=== PATIENT | female | born 1995 | race Caucasian/White ===

== ENCOUNTER 2018-05-03 07:59 | Emergency (ER) | payer OTHER ==
[2018-05-03 08:06] VITALS: BP 117/81; PULSE 112; RESP 20; TEMP 98.5
[2018-05-03] MEDS ORDERED: ORPHENADRINE 30 MG/ML 2 ML VIAL IM STA (08:36)
[2018-05-03] MEDS ORDERED: KETOROLAC 60 MG/2 ML VIAL IM STA (08:36)
--- NOTE | 2018-05-03 08:38 | ED ---
Neck Injury/Pain HPI - General Chief Complaint: Neck Pain/Injury Stated Complaint: Neck Pain Time Seen by Provider: 05/03/18 08:24 Source: RN notes reviewed, old records reviewed Mode of arrival: ambulatory Limitations: no limitations - History of Present Illness Initial Comments: 23-year-old female presents with right-sided neck pain. She reports she woke up today and sat up and started have severe pain in the right side of her neck. She states it's worse with movement. Reports the pain shoots in her shoulder. She denies any falls or trauma or injury. Patient states that she's never had this before. She did take a Flexeril prior to arrival.Patient denies any recent fever, chills, shortness of breath, chest pain, back pain, abdominal pain, nausea vomiting, numbness or tingling, dysuria or hematuria, constipation or diarrhea, headaches or visual changes, or any other current symptoms - Related Data Previous Rx's Medication Instructions Recorded Dexamethasone 0.75 mg PO DAILY #12 tab 05/03/18 Diazepam [Valium] 5 mg PO Q8HR PRN 3 Days #9 tab 05/03/18 Ibuprofen 800 mg PO TID #20 tablet 05/03/18 Allergies Allergy/AdvReac Type Severity Reaction Status Date / Time No Known Allergies Allergy Verified 05/03/18 08:06 Review of Systems ROS Statement: Those systems with pertinent positive or pertinent negative responses have been documented in the HPI. ROS Other: All systems not noted in ROS Statement are negative. Past Medical History Past Medical History: No Reported History, Asthma History of Any Multi-Drug Resistant Organisms: None Reported Past Surgical History: Adenoidectomy, Tonsillectomy Additional Past Surgical History / Comment(s): breast cyst removed Past Psychological History: No Psychological Hx Reported Smoking Status: Never smoker Past Alcohol Use History: Rare Past Drug Use History: None Reported General Exam - General Exam Comments Initial Comments: 23-year-old female. Alert and oriented. No acute distress Limitations: no limitations General appearance: alert, in no apparent distress Head exam: Present: atraumatic, normocephalic, normal inspection Eye exam: Present: normal appearance, PERRL, EOMI. Absent: scleral icterus, conjunctival injection, periorbital swelling ENT exam: Present: normal exam, mucous membranes moist Neck exam: Present: normal inspection, tenderness (Over right SCM.). Absent: meningismus, full ROM (Patient will not turn had a left and right due to pain), lymphadenopathy Respiratory exam: Present: normal lung sounds bilaterally. Absent: respiratory distress, wheezes, rales, rhonchi, stridor Cardiovascular Exam: Present: regular rate, normal rhythm, normal heart sounds. Absent: systolic murmur, diastolic murmur, rubs, gallop, clicks GI/Abdominal exam: Present: soft, normal bowel sounds. Absent: distended, tenderness, guarding, rebound, rigid Extremities exam: Present: normal inspection, full ROM, normal capillary refill. Absent: tenderness, pedal edema, joint swelling, calf tenderness Back exam: Present: normal inspection Neurological exam: Present: alert, oriented X3, CN II-XII intact Psychiatric exam: Present: normal affect Skin exam: Present: warm, dry, intact, normal color. Absent: rash Course Vital Signs 05/03/18 08:02 Temperature 98.5 F Pulse Rate 112 H Respiratory 20 Rate Blood Pressure 117/81 O2 Sat by Pulse 100 Oximetry Medical Decision Making - Medical Decision Making 23-year-old female presents emergency Department chief complaint of right-sided neck pain. She reports that she woke up today and is unable to turn her head from [id number]. Patient states she's had no trauma. Patient has some tenderness over the right SCM. Reports pain goes into the shoulder. She is given IM Toradol and Norflex. X-ray shows evidence of a rightward tilting of the neck due to muscle spasm or position. No evidence of malalignment or soft tissue swelling. Patient be discharged at this time with muscle relaxers and short course of pain medicine. Discussed follow-up with PCP L questions answered return parameters were discussed. - Radiology Data Radiology results: report reviewed Patient's rightward head turned be positional or due to muscle spasm. No malalignment. no Vertebral soft tissue swelling. Disposition Clinical Impression: Right torticollis Disposition: HOME SELF-CARE Condition: Good Instructions: Cervical Strain (ED) Additional Instructions: Patient advised to follow-up with primary care provider. Take medication as prescribed. Do warm compresses over the area. Return to emergency department if any alarming signs or symptoms occur. Prescriptions: Dexamethasone 0.75 mg PO DAILY #12 tab Diazepam [Valium] 5 mg PO Q8HR PRN 3 Days #9 tab PRN Reason: Pain Ibuprofen 800 mg PO TID #20 tablet Is patient prescribed a controlled substance at d/c from ED?: Yes When asked, does pt state using other controlled substances?: No If prescribed controlled substance>3 days was MAPS reviewed?: Prescribed <3 Days If opioid is for acute pain is fill amount 7 days or less?: Yes If Rx opioid, was Start Talking consent form obtained?: No Referrals: None,Stated [Primary Care Provider] - 1-2 days Elizabeth Byrd MD [STAFF PHYSICIAN] - 1-2 days Time of Disposition: 09:40
--- NOTE | 2018-05-03 09:24 | XR ---
EXAMINATION TYPE: XR cervical spine limited DATE OF EXAM: 05/03/2018 COMPARISON: NONE HISTORY: 23 year-old female right-sided neck pain TECHNIQUE: 4 views FINDINGS: No predental space widening or prevertebral soft tissue swelling. Alignment is maintained. No acute f racture identified. Normal odontoid view. There is some rightward tilt of the patient's neck. IMPRESSION: Rightward tilt of the patient's neck could be positional or due to muscle spasm. No malalignment or p revertebral soft tissue swelling.
== END 2018-05-03 09:52 | disposition home or self-care (01) ==
LOC: EC 07:59
DX: M43.6 Torticollis (principal)
CPT/HCPCS: 72040; 99284; 96372 ×2; J2360; J1885

== ENCOUNTER 2021-06-12 07:41 | Emergency (ER) | payer BC, OTHER ==
[2021-06-12 07:46] VITALS: BP 107/72; PULSE 113; RESP 18; TEMP 98.6
[2021-06-12] MEDS ORDERED: ACETAMINOPHEN TAB 500 MG TAB PO STA (08:20)
--- NOTE | 2021-06-12 08:21 | ED ---
Extremity Problem HPI - General Chief complaint: Extremity Problem,Nontraumatic Stated complaint: leg pain Time Seen by Provider: 06/12/21 07:58 Source: patient, RN notes reviewed Mode of arrival: wheelchair Limitations: no limitations - History of Present Illness Initial comments: This a 26-year-old female presents emergency from chief complaint of left leg pain, back pain. Patient has a history of sciatica states it feels very similar. She woke up with yesterday. She is not taking any medications for her. She does admit that she is currently denies any vaginal bleeding or vaginal discharge. She states she has a burning sensation, numbness in her left leg denies any bowel, bladder incontinence or retentionor saddle anesthesias. - Related Data Previous Rx's Medication Instructions Recorded Ibuprofen 800 mg PO TID #20 tablet 05/03/18 dexAMETHasone [Dexamethasone] 0.75 mg PO DAILY #12 tab 05/03/18 diazePAM [Valium] 5 mg PO Q8HR PRN 3 Days #9 tab 05/03/18 Allergies Allergy/AdvReac Type Severity Reaction Status Date / Time No Known Allergies Allergy Verified 06/12/21 07:45 Review of Systems ROS Statement: Those systems with pertinent positive or pertinent negative responses have been documented in the HPI. ROS Other: All systems not noted in ROS Statement are negative. Past Medical History Past Medical History: No Reported History, Asthma History of Any Multi-Drug Resistant Organisms: None Reported Past Surgical History: Adenoidectomy, Tonsillectomy Additional Past Surgical History / Comment(s): breast cyst removed Past Psychological History: No Psychological Hx Reported Smoking Status: Never smoker Past Alcohol Use History: Rare Past Drug Use History: None Reported General Exam Limitations: no limitations General appearance: alert, in no apparent distress Head exam: Present: atraumatic, normocephalic, normal inspection Neck exam: Present: normal inspection, full ROM. Absent: tenderness, meningismus, lymphadenopathy Respiratory exam: Present: normal lung sounds bilaterally. Absent: respiratory distress, wheezes, rales, rhonchi, stridor Cardiovascular Exam: Present: regular rate, normal rhythm, normal heart sounds. Absent: systolic murmur, diastolic murmur, rubs, gallop, clicks GI/Abdominal exam: Present: soft, normal bowel sounds. Absent: distended, tenderness, guarding, rebound, rigid Extremities exam: Present: other (Lower extremity neurovascular intact, pain with left straight leg raise) Back exam: Present: full ROM (Pain With range of motion), tenderness, paraspinal tenderness. Absent: vertebral tenderness Neurological exam: Present: reflexes normal. Absent: motor sensory deficit Course Vital Signs 06/12/21 07:43 Temperature 98.6 F Pulse Rate 113 H Respiratory 18 Rate Blood Pressure 107/72 O2 Sat by Pulse 100 Oximetry Medical Decision Making - Medical Decision Making Patient has left leg lumbar radiculopathy. She'll be given Tylenol she is currently . She has no red flag symptoms return parameters were discussed. Disposition Clinical Impression: Lumbar radiculopathy, acute Disposition: HOME SELF-CARE Condition: Stable Instructions (If sedation given, give patient instructions): Lumbar Radiculopathy (ED) Additional Instructions: Please return to the Emergency Department if symptoms worsen or any other concerns. Is patient prescribed a controlled substance at d/c from ED?: No Referrals: None,Stated [Primary Care Provider] - 1-2 days Time of Disposition:
== END 2021-06-12 08:28 | disposition home or self-care (01) ==
LOC: EC 07:41
DX: M54.16 Radiculopathy, lumbar region (principal); J45.909 Unspecified asthma, uncomplicated; Z79.1 Long term (current) use of non-steroidal anti-inflammatories (NSAID); Z79.899 Other long term (current) drug therapy
CPT/HCPCS: 99283

== ENCOUNTER 2021-06-13 19:13 | Inpatient (IN) | payer BC, OTHER ==
[2021-06-13] MEDS ORDERED: ACETAMINOPHEN TAB 325 MG TAB PO STA (21:42)
[2021-06-13 22:09] LABS: Appearance,Urine Cloudy (Clear); Bacteria,Urine Many /hpf; Bilirubin,Urine Negative (Negative); Blood,Urine Negative (Negative); Color,Urine Yellow; Glucose,Urine (UA) Negative (Negative); Ketones,Urine 4+ (Negative); Leukocyte Esterase,Urine Small (Negative); Mucus,Urine Few /hpf; Nitrite,Urine Negative (Negative); PH, Urine 5.5 (5.0-8.0); Protein,Urine Trace (Negative); RBC,Urine 2 /hpf (0-5); Specific Gravity,Urine 1.023 (1.001-1.035); Squamous Epithelial Cell,Urine 3 /hpf (0-4); Urobilinogen,Urine <2.0 mg/dL (<2.0); WBC,Urine 11 /hpf (0-5)
[2021-06-13 22:15] LABS: Basophils % (A) 0 %; Eosinophils # (A) 0.1 k/uL (0-0.7); Eosinophils % (A) 1 %; HCT 38.5 % (34.0-46.0); HGB 13.4 gm/dL (11.4-16.0); Lymphocytes # (A) 1.2 k/uL (1.0-4.8); Lymphocytes % (A) 9 %; MCHC 34.9 g/dL (31.0-37.0); MCV 88.8 fL (80.0-100.0); Mean Platelet Volume 7.8; Monocytes # (A) 0.5 k/uL (0-1.0); Monocytes % (A) 4 %; Neutrophils # (A) 11.7 k/uL (1.3-7.7); Neutrophils % (A) 85 %; Platelet Count 199 k/uL (150-450); RBC 4.33 m/uL (3.80-5.40); RDW 11.9 % (11.5-15.5); WBC 13.7 k/uL (3.8-10.6)
[2021-06-13 22:22] LABS: ALT 11 U/L (4-34); AST 26 U/L (14-36); African American GFR (CKD) >90 (>60 ml/min/1.73 sqM); Albumin 4.3 g/dL (3.5-5.0); Alkaline Phosphatase 61 U/L (38-126); Anion Gap 12 mmol/L; Blood Urea Nitrogen 9 mg/dL (7-17); Calcium 9.2 mg/dL (8.4-10.2); Carbon Dioxide 19 mmol/L (22-30); Chloride 101 mmol/L (98-107); Glucose 91 mg/dL (74-99); Non-African American GFR(CKD) >90 (>60 ml/min/1.73 sqM); Potassium 4.2 mmol/L (3.5-5.1); Sodium 132 mmol/L (137-145); Total Bilirubin 0.5 mg/dL (0.2-1.3); Total Protein 7.4 g/dL (6.3-8.2)
[2021-06-13] MEDS ORDERED: SODIUM CHLORIDE 0.9% 1,000 ML IV STA (22:51)
--- NOTE | 2021-06-13 22:52 | US ---
EXAMINATION TYPE: US venous doppler duplex LE LT DATE OF EXAM: 06/13/2021 10:40 PM COMPARISON: NONE CLINICAL HISTORY: r/o dvt. R/O DVT. Pain and swelling x 3 days. No hx of DVT. Patient does not take b lood thinners. Patient is 8 weeks *. SIDE PERFORMED: Left TECHNIQUE: The lower extremity deep venous system is examined utilizing real time linear array sonog devonte with graded compression, doppler sonography and color-flow sonography. VESSELS IMAGED: Common Femoral Vein Deep Femoral Vein Greater Saphenous Vein * Femoral Vein Popliteal Vein Small Saphenous Vein * Proximal Calf Veins (* superficial vessels) Left Leg: Extensive internal echoes seen from prox calf veins up through CFV/GSV. Little to no color flow is seen within veins imaged. Compressions were not performed due to internal echoes seen. IMPRESSION: There is extensive acute deep vein thrombosis in the left leg. There is involvement of the femoral an d popliteal veins in the calf veins.
[2021-06-13] MEDS ORDERED: HEPARIN SODIUM 1,000 UN/ML (10ML VL) IV PRN (23:15)
[2021-06-13] MEDS ORDERED: HEPARIN SODIUM 1,000 UN/ML (10ML VL) IV ONE (23:15)
[2021-06-13] MEDS ORDERED: HEPARIN SOD,PORK IN 0.45% NACL 25,000 UNIT in 0.45% NACL 1 250ML.BAG IV SCH (23:15)
[2021-06-13] MEDS ORDERED: NALOXONE 0.4 MG/ML 1 ML VIAL IV PRN (23:24)
--- NOTE | 2021-06-13 23:24 | ED ---
Extremity Problem HPI - General Chief complaint: Extremity Problem,Nontraumatic Stated complaint: 8wks preg/left leg pain/revisit Time Seen by Provider: 06/13/21 21:18 Source: patient Mode of arrival: wheelchair Limitations: no limitations - History of Present Illness Initial comments: 26-year-old female, , 8 week , presenting to emergency Department with a chief complaint of back and leg pain. Patient reports she has sciatica type pain that is common with her last . Patient reports her pain started about 3 days ago, gradual onset without any injuries. States it is located in the lower lumbar region with radiation along posterior aspect of the left lower extremity. States she was evaluated yesterday and her symptoms imp roved after analgesia. However, states the symptoms have returned. She is also noticed swelling in the left lower extremity as well. Denies any associated chest pain or shortness of breath. She does not have any urinary or vaginal symptoms. No vaginal bleeding or abdominal cramping. - Related Data Home Medications Medication Instructions Recorded Confirmed Acetaminophen [Tylenol Extra 1,000 mg PO Q6H PRN 06/13/21 06/13/21 Strength] Allergies Allergy/AdvReac Type Severity Reaction Status Date / Time No Known Allergies Allergy Verified 06/13/21 22:38 Review of Systems ROS Statement: Those systems with pertinent positive or pertinent negative responses have been documented in the HPI. ROS Other: All systems not noted in ROS Statement are negative. Past Medical History Past Medical History: No Reported History, Asthma History of Any Multi-Drug Resistant Organisms: None Reported Past Surgical History: Adenoidectomy, Tonsillectomy Additional Past Surgical History / Comment(s): breast cyst removed Past Psychological History: No Psychological Hx Reported Smoking Status: Never smoker Past Alcohol Use History: Rare Past Drug Use History: None Reported General Exam Limitations: no limitations General appearance: alert, in no apparent distress Head exam: Present: atraumatic, normocephalic, normal inspection Eye exam: Present: normal appearance, PERRL, EOMI Pupils: Present: normal accommodation ENT exam: Present: normal exam, normal oropharynx, mucous membranes moist Neck exam: Present: normal inspection, full ROM. Absent: tenderness, lymphadenopathy Respiratory exam: Present: normal lung sounds bilaterally. Absent: respiratory distress Cardiovascular Exam: Present: regular rate, normal rhythm, normal heart sounds. Absent: systolic murmur Extremities exam: Present: normal inspection, full ROM, tenderness, normal capillary refill, calf tenderness (Left calf tenderness), other (Palpable DP and PT bilaterally) Back exam: Present: normal inspection, full ROM. Absent: tenderness Neurological exam: Present: alert, oriented X3 Psychiatric exam: Present: normal affect, normal mood Skin exam: Present: warm, dry, intact, normal color Course Vital Signs 06/13/21 19:51 Temperature 99.3 F Pulse Rate 106 H Respiratory 20 Rate Blood Pressure 106/68 O2 Sat by Pulse 97 Oximetry Medical Decision Making - Medical Decision Making 26-year-old female presents emergency Department with a chief complaint of back and leg pain. Physical examination, positive Homans sign. Ultrasound revealed an extensive acute DVT in the left leg. There is a vomit of the femoral and popliteal veins. Laboratory work shows no other acute findings. She does not have any urinary or vaginal symptoms. No vaginal bleeding or abdominal crampi ng. Patient will be started on low intensity heparin per recommendation from inpatient pharmacy. Plus for ketones and urine. She will be given IV fluids. Case discussed with I spoke with VERITO Lovell. who will admit for Dr. Duran OB on consult. - Lab Data Result diagrams: 06/13/21 21:58 06/13/21 21:58 Lab Results 06/13/21 06/13/21 06/13/21 Range/Units 21:54 21:58 21:58 WBC 13.7 H (3.8-10.6) k/uL RBC 4.33 (3.80-5.40) m/uL Hgb 13.4 (11.4-16.0) gm/dL Hct 38.5 (34.0-46.0) % MCV 88.8 (80.0-100.0) fL MCH 31.0 (25.0-35.0) pg MCHC 34.9 (31.0-37.0) g/dL RDW 11.9 (11.5-15.5) % Plt Count 199 (150-450) k/uL MPV 7.8 Neutrophils % 85 % Lymphocytes % 9 % Monocytes % 4 % Eosinophils % 1 % Basophils % 0 % Neutrophils # 11.7 H (1.3-7.7) k/uL Lymphocytes # 1.2 (1.0-4.8) k/uL Monocytes # 0.5 (0-1.0) k/uL Eosinophils # 0.1 (0-0.7) k/uL Basophils # 0.0 (0-0.2) k/uL Sodium 132 L (137-145) mmol/L Potassium 4.2 (3.5-5.1) mmol/L Chloride 101 (98-107) mmol/L Carbon Dioxide 19 L (22-30) mmol/L Anion Gap 12 mmol/L BUN 9 (7-17) mg/dL Creatinine 0.46 L (0.52-1.04) mg/dL Est GFR (CKD-EPI)AfAm >90 (>60 ml/min/1.73 sqM) Est GFR (CKD-EPI)NonAf >90 (>60 ml/min/1.73 sqM) Glucose 91 (74-99) mg/dL Calcium 9.2 (8.4-10.2) mg/dL Total Bilirubin 0.5 (0.2-1.3) mg/dL AST 26 (14-36) U/L ALT 11 (4-34) U/L Alkaline Phosphatase 61 (38-126) U/L Total Protein 7.4 (6.3-8.2) g/dL Albumin 4.3 (3.5-5.0) g/dL Urine Color Yellow Urine Appearance Cloudy H (Clear) Urine pH 5.5 (5.0-8.0) Ur Specific Howard 1.023 (1.001-1.035) Urine Protein Trace H (Negative) Urine Glucose (UA) Negative (Negative) Urine Ketones 4+ H (Negative) Urine Blood Negative (Negative) Urine Nitrite Negative (Negative) Urine Bilirubin Negative (Negative) Urine Urobilinogen <2.0 (<2.0) mg/dL Ur Leukocyte Esterase Small H (Negative) Urine RBC 2 (0-5) /hpf Urine WBC 11 H (0-5) /hpf Ur Squamous Epith Cells 3 (0-4) /hpf Urine Bacteria Many H (None) /hpf Urine Mucus Few H (None) /hpf Disposition Clinical Impression: Deep vein thrombosis (DVT) of lower extremity Disposition: ADMITTED IP TO THIS HOSP Condition: Stable Is patient prescribed a controlled substance at d/c from ED?: No Referrals: None,Stated [Primary Care Provider] - 1-2 days Time of Disposition: 23:23
[2021-06-13 23:57] LABS: Basophils # (A) 0.1 k/uL (0-0.2); Basophils % (A) 0 %; Eosinophils # (A) 0.1 k/uL (0-0.7); Eosinophils % (A) 1 %; HCT 36.9 % (34.0-46.0); HGB 12.9 gm/dL (11.4-16.0); Lymphocytes # (A) 0.9 k/uL (1.0-4.8); Lymphocytes % (A) 7 %; MCH 31.4 pg (25.0-35.0); MCHC 34.8 g/dL (31.0-37.0); MCV 90.2 fL (80.0-100.0); Mean Platelet Volume 7.5; Monocytes # (A) 0.5 k/uL (0-1.0); Monocytes % (A) 4 %; Neutrophils # (A) 12.1 k/uL (1.3-7.7); Neutrophils % (A) 88 %; Platelet Count 199 k/uL (150-450); RBC 4.09 m/uL (3.80-5.40); RDW 12.3 % (11.5-15.5); WBC 13.8 k/uL (3.8-10.6)
[2021-06-14 00:02] LABS: INR 0.9 (<1.2); Partial Thromboplastin Time 24.8 sec (22.0-30.0); Prothrombin Time 10.1 sec (9.0-12.0)
[2021-06-14] MEDS: ACETAMINOPHEN TAB 325 MG TAB PO PRN ×2 (04:44→11:17)
[2021-06-14 07:00] LABS: Prothrombin Time 10.4 sec (9.0-12.0)
[2021-06-14 07:19] LABS: Basophils % (A) 0 %; Eosinophils # (A) 0.1 k/uL (0-0.7); Eosinophils % (A) 1 %; HCT 35.3 % (34.0-46.0); HGB 11.7 gm/dL (11.4-16.0); Lymphocytes # (A) 1.5 k/uL (1.0-4.8); Lymphocytes % (A) 13 %; MCH 29.9 pg (25.0-35.0); MCHC 33.1 g/dL (31.0-37.0); MCV 90.3 fL (80.0-100.0); Mean Platelet Volume 8.2; Monocytes # (A) 0.5 k/uL (0-1.0); Monocytes % (A) 4 %; Neutrophils # (A) 8.8 k/uL (1.3-7.7); Neutrophils % (A) 80 %; Platelet Count 195 k/uL (150-450); RDW 11.9 % (11.5-15.5)
[2021-06-14] MEDS ORDERED: diphenhydrAMINE 25 MG CAP PO STA (07:39)
[2021-06-14] MEDS ORDERED: ONDANSETRON 4 MG/2 ML VIAL IVP PRN (08:45)
--- NOTE | 2021-06-14 13:00 | P.OBCN ---
History of Present Illness Consult date: 06/14/21 Reason for consult: other (, DVT) Chief complaint: 8 weeks , DVT History of present illness: This is a 26-year-old that presented to the hospital with complaints of lower extremity swelling. Patient was diagnosed with deep vein thrombosis and admitted to the hospital for IV therapy with heparin. Patient states she did have an ultrasound at a care center [facility] which gave her for due date. She has not had a formal dating ultrasound. Patient states she has not established care with a [employer] yet. Patient states she has some nausea for which she is taking Zofran, she denies vaginal bleeding or spotting. Patient states she had an uncomplicated first 7 years ago she did struggle with nausea and vomiting of until about 8 weeks, otherwise she had a spontaneous vaginal delivery. Review of Systems Constitutional: Denies chills, Denies fatigue, Denies fever Cardiovascular: Denies leg edema Respiratory: Denies dyspnea Gastrointestinal: Reports nausea, Reports vomiting Genitourinary: Reports Past Medical History Past Medical History: No Reported History, Asthma History of Any Multi-Drug Resistant Organisms: None Reported Past Surgical History: Adenoidectomy, Tonsillectomy Additional Past Surgical History / Comment(s): breast cyst removed Past Psychological History: No Psychological Hx Reported Smoking Status: Never smoker Past Alcohol Use History: Rare Past Drug Use History: None Reported Medications and Allergies Home Medications Medication Instructions Recorded Confirmed Type Acetaminophen [Tylenol Extra 1,000 mg PO Q6H PRN 06/13/21 06/13/21 History Strength] Allergies Allergy/AdvReac Type Severity Reaction Status Date / Time No Known Allergies Allergy Verified 06/13/21 22:38 Exam Osteopathic Statement: *. No significant issues noted on an osteopathic structural exam other than those noted in the History and Physical/Consult. Vital Signs Temp Pulse Pulse Resp BP BP Pulse Ox 06/14/21 07:42 98.3 F 95 16 100/66 97 06/14/21 01:24 99 F 87 18 100/68 98 06/13/21 19:51 99.3 F 106 H 20 106/68 97 Intake and Output 06/13/21 06/14/21 06/14/21 22:59 06:59 14:59 Other: Weight 68.039 kg 68.039 kg Targeted physical exam is performed. Patient is noted to be a well-nourished well-developed female in no acute distress, breathing is noted to be nonlabored, heart has regular rate and rhythm, abdomen is soft. Pelvic exam is deferred. Results Result Diagrams: 06/14/21 05:57 06/13/21 21:58 Abnormal Lab Results - Last 24 Hours (Table) 06/13/21 06/13/21 06/13/21 Range/Units 21:54 21:58 21:58 WBC 13.7 H (3.8-10.6) k/uL Neutrophils # 11.7 H (1.3-7.7) k/uL Lymphocytes # (1.0-4.8) k/uL APTT (22.0-30.0) sec Sodium 132 L (137-145) mmol/L Carbon Dioxide 19 L (22-30) mmol/L Creatinine 0.46 L (0.52-1.04) mg/dL Urine Appearance Cloudy H (Clear) Urine Protein Trace H (Negative) Urine Ketones 4+ H (Negative) Ur Leukocyte Esterase Small H (Negative) Urine WBC 11 H (0-5) /hpf Urine Bacteria Many H (None) /hpf Urine Mucus Few H (None) /hpf 06/13/21 06/14/21 06/14/21 Range/Units 23:31 05:57 05:57 WBC 13.8 H 11.0 H (3.8-10.6) k/uL Neutrophils # 12.1 H 8.8 H (1.3-7.7) k/uL Lymphocytes # 0.9 L (1.0-4.8) k/uL APTT 51.1 H (22.0-30.0) sec Sodium (137-145) mmol/L Carbon Dioxide (22-30) mmol/L Creatinine (0.52-1.04) mg/dL Urine Appearance (Clear) Urine Protein (Negative) Urine Ketones (Negative) Ur Leukocyte Esterase (Negative) Urine WBC (0-5) /hpf Urine Bacteria (None) /hpf Urine Mucus (None) /hpf Microbiology - Last 24 Hours (Table) 06/13/21 21:54 Urine Culture - Preliminary Urine,Clean Catch Assessment and Plan (1) 8 weeks gestation of Current Visit: Yes Status: Acute Code(s): Z3A.08 - 8 WEEKS GESTATION OF SNOMED Code(s): 43010807 (2) Deep vein thrombosis (DVT) of lower extremity Current Visit: Yes Status: Acute Code(s): I82.409 - ACUTE EMBOLISM AND THOMBOS UNSP DEEP VN UNSP LOWER EXTREMITY SNOMED Code(s): 141962694 Plan: This pleasant 26-year-old at approximately 8 weeks of gestation presented to the hospital yesterday with complaints of lower extremity pain and swelling. Patient was subsequently diagnosed with deep pain thrombosis and started on IV heparin. Medicine is following. In regards to her OB care, will order ultrasound for dating purposes. Otherwise will follow along on the periphery. Patient is currently taking a vitamin in addition to Zofran as needed for her nausea. Patient is encouraged to establish care with [employer] once discharge is done. All questions are answered to patient's satisfaction, should you have any other concerns regarding this patient please feel free to reach out thank you
--- NOTE | 2021-06-14 14:00 | US ---
EXAMINATION TYPE: Transabdominal DATE OF EXAM: 06/14/2021 1:41 PM COMPARISON: NONE CLINICAL HISTORY: , DVT. positive for DVT, no pelvic complaints, EXAM PERFORMED: OBTA EXAM MEASUREMENTS: GESTATIONAL AGE / DATING Physician Established: ( 8 weeks/5 days) EDC: 01/19/2022 Dates by LMP: LMP unknown Dates by First Scan: No previous this is first scan Dates by Current Scan for: ( 9 weeks/3 days) EDC: 01/14/2022 MATERNAL ANATOMY Uterus: 11.7 x 8.7 x 6.8cm Right Ovary: not seen due to bowel gas and enlarging UT Left Ovary: 2.7 x 3.1 x 2.1cm Post CDS / Adnexa: wnl Presence of free fluid: no Presence of corpus luteal cyst: not seen Presence of subchorionic bleed: no GESTATION / SURVEY CRL: 26.3cm (9 weeks/3 days) MSD: wnl Yolk Sac (normal less than 6mm): 0.5cm Heart Rate: 170 bpm Rhythm: Normal IUP: Viable IUP Urinary bladder is sonolucent. IMPRESSION: 1. Single intrauterine gestation estimated at 9 weeks 3 days gestation based on the crown-rump length . Cardiac activity measures 170 bpm.
[2021-06-14] MEDS ORDERED: HYDROcodone/APAP 7.5-325MG 1 EACH TAB PO PRN (16:19)
--- NOTE | 2021-06-14 16:45 | P.HPIM ---
History of Present Illness Patient is a pleasant 26-year-old female came in with comments of left lower extremity swelling found to have DVT in the left lower extremity. Patient is 8 weeks . She is comparing of severe pain in the leg as well as pain in the back. All these pains was started about 3 days ago. She and had history of sciatica during her last . Patient is also bit hyponatremic and did have leukocytosis with white blood cell count of 13,700. REVIEW OF SYSTEMS: CONSTITUTIONAL: No fever, no malaise, no fatigue. HEENT: No recent visual problems or hearing problems. Denied any sore throat. CARDIOVASCULAR: No chest pain, orthopnea, PND, no palpitations, no syncope. PULMONARY: No shortness of breath, no cough, no hemoptysis. GASTROINTESTINAL: No diarrhea, no nausea, no vomiting, no abdominal pain. NEUROLOGICAL: No headaches, no weakness, no numbness. HEMATOLOGICAL: Denies any bleeding or petechiae. GENITOURINARY: Denies any burning micturition, frequency, or urgency. MUSCULOSKELETAL/RHEUMATOLOGICAL: Pain in the left leg swelling in the left leg as well as low back pain ENDOCRINE: Denies any polyuria or polydipsia. The rest of the 14-point review of systems is negative. PHYSICAL EXAMINATION: GENERAL: The patient is alert and oriented x3, not in any acute distress. Well developed, well nourished. HEENT: Pupils are round and equally reacting to light. EOMI. No scleral icterus. No conjunctival pallor. Normocephalic, atraumatic. No pharyngeal erythema. No thyromegaly. CARDIOVASCULAR: S1 and S2 present. No murmurs, rubs, or gallops. PULMONARY: Chest is clear to auscultation, no wheezing or crackles. ABDOMEN: Soft, nontender, nondistended, normoactive bowel sounds. No palpable organomegaly. MUSCULOSKELETAL: No joint swelling or deformity. EXTREMITIES: No cyanosis, clubbin. Edema in the left lower extremity NEUROLOGICAL: Gross neurological examination did not reveal any focal deficits. SKIN: No rashes. Assessment and plan Left lower extremity DVT and this DVT secondary to her status. Patient will be started on Lovenox this can you IV heparin patient will be discharged on Lovenox which she'll need to continue until 6 weeks . Lovenox can be held before planned procedure like section and need to be started 6-12 hours after the procedure depending on the type of procedure. I will hyponatremia hypovolemic hyponatremia patient is receiving IV fluids -Severe pain in the left lower extremity probably post-thrombotic pain we will use compression socks patient pain is not controlled on Tylenol will use [place] for pain -Leukocytosis reactive in nature -8 weeks gestation: Was evaluated by VP PATIENT. -Low back pain, chronic DVT prophylaxis: Patient is on therapeutic anticoagulation with Lovenox Past Medical History Past Medical History: No Reported History, Asthma History of Any Multi-Drug Resistant Organisms: None Reported Past Surgical History: Adenoidectomy, Tonsillectomy Additional Past Surgical History / Comment(s): breast cyst removed Past Psychological History: No Psychological Hx Reported Smoking Status: Never smoker Past Alcohol Use History: Rare Past Drug Use History: None Reported Medications and Allergies Home Medications Medication Instructions Recorded Confirmed Type Acetaminophen [Tylenol Extra 1,000 mg PO Q6H PRN 06/13/21 06/13/21 History Strength] Allergies Allergy/AdvReac Type Severity Reaction Status Date / Time No Known Allergies Allergy Verified 06/13/21 22:38 Physical Exam Vitals: Vital Signs Temp Pulse Pulse Pulse Resp BP BP 06/14/21 14:00 98.6 F 86 17 90/62 06/14/21 07:42 98.3 F 95 16 100/66 06/14/21 01:24 99 F 87 18 100/68 06/13/21 19:51 99.3 F 106 H 20 106/68 Pulse Ox 06/14/21 14:00 98 06/14/21 07:42 97 06/14/21 01:24 98 06/13/21 19:51 97 Intake and Output 06/14/21 06/14/21 06/14/21 06:59 14:59 22:59 Other: Weight 68.039 kg Results CBC & Chem 7: 06/14/21 05:57 06/13/21 21:58 Labs: Abnormal Lab Results - Last 24 Hours (Table) 06/13/21 06/13/21 06/13/21 Range/Units 21:54 21:58 21:58 WBC 13.7 H (3.8-10.6) k/uL Neutrophils # 11.7 H (1.3-7.7) k/uL Lymphocytes # (1.0-4.8) k/uL APTT (22.0-30.0) sec Sodium 132 L (137-145) mmol/L Carbon Dioxide 19 L (22-30) mmol/L Creatinine 0.46 L (0.52-1.04) mg/dL Urine Appearance Cloudy H (Clear) Urine Protein Trace H (Negative) Urine Ketones 4+ H (Negative) Ur Leukocyte Esterase Small H (Negative) Urine WBC 11 H (0-5) /hpf Urine Bacteria Many H (None) /hpf Urine Mucus Few H (None) /hpf 06/13/21 06/14/21 06/14/21 Range/Units 23:31 05:57 05:57 WBC 13.8 H 11.0 H (3.8-10.6) k/uL Neutrophils # 12.1 H 8.8 H (1.3-7.7) k/uL Lymphocytes # 0.9 L (1.0-4.8) k/uL APTT 51.1 H (22.0-30.0) sec Sodium (137-145) mmol/L Carbon Dioxide (22-30) mmol/L Creatinine (0.52-1.04) mg/dL Urine Appearance (Clear) Urine Protein (Negative) Urine Ketones (Negative) Ur Leukocyte Esterase (Negative) Urine WBC (0-5) /hpf Urine Bacteria (None) /hpf Urine Mucus (None) /hpf Microbiology - Last 24 Hours (Table) 06/13/21 21:54 Urine Culture - Preliminary Urine,Clean Catch Thrombosis Risk Factor Assmnt - Choose All That Apply Any of the Below Risk Factors Present?: Yes Each Factor Represents 1 point: or Each Risk Factor Represents 3 Points: History of DVT/PE Thrombosis Risk Factor Assessment Total Risk Factor Score: 4 Thrombosis Risk Factor Assessment Level: Moderate Risk
[2021-06-14] MEDS: HYDROcodone/APAP 10-325MG 1 EACH TAB PO PRN (17:12)
[2021-06-14] MEDS: ENOXAPARIN 60 MG/0.6 ML SYRINGE SQ SCH (20:43)
[2021-06-15] MEDS: HYDROcodone/APAP 10-325MG 1 EACH TAB PO PRN (00:12)
[2021-06-15] MEDS ORDERED: HYDROcodone/APAP 5-325MG 1 EACH TAB PO PRN (07:28)
[2021-06-15] MEDS: ENOXAPARIN 60 MG/0.6 ML SYRINGE SQ SCH (07:44)
[2021-06-15 07:49] VITALS: RESP 17
[2021-06-15 14:37] LABS: Anion Gap 12.9 mmol/L (4.00-12.00); Calcium 8.6 mg/dL (8.7-10.3); Carbon Dioxide 20.1 mmol/L (21.6-31.8); Non-African American GFR(CKD) 135.5 (60.0-200.0); Potassium 4.2 mmol/L (3.5-5.5)
[2021-06-15 15:11] VITALS: BP 104/70; PULSE 98; TEMP 98.3
--- NOTE | 2021-06-15 16:01 | P.DS ---
Providers Date of admission: 06/14/21 22:01 Attending physician: Car Duran Consults: 06/13/21 23:24 Consult Physician Routine Consulting Provider: Parul Valencia Consult Reason/Comments: DVT in Do you want consulting provider notified?: Yes Primary care physician: Stated None Hospital Course: Final Diagnosis -Left lower extremity DVT and this DVT secondary to her status. Patient will be started on Lovenox, and discharged on Lovenox which she'll need to continue until 6 weeks . Lovenox can be held before planned procedure like section and need to be started 6-12 hours after the procedure depending on the type of procedure. Patient has a family history of DVT, patient will follow-up with hematology services outpatient. -Hypovolemic hyponatremia, stable, encourage hydration. Follow-up with primary care -Severe pain in the left lower extremity probably post-thrombotic pain we will use compression socks patient pain is not controlled on Tylenol will use [place] for pain. Patient given a small amount for discharge, please follow up with primary care. -Leukocytosis reactive in nature, trending down. -8 weeks gestation: Was evaluated by [facility] IN[facility]STIGATOR. Follow up in the office. -Low back pain, chronic Discharge Disposition Patient will be discharged home with self-care. Patient refuses the need for home care services. Patient is given a prescription for a walker to help with initial ambulation around her house for additional support related to leg pain from DVT. Patient is given a prescription for twelve [place] tablets. Patient will need to follow-up for primary care for additional pain management services. Patient is encouraged to continue using her leg as tolerated and increase activity level. Patient is very tearful during discussion, she states that her works all day and states that she will have trouble giving herself the Lovenox injection. Patient states that she has an aunt who can help give her these injections. Patient was educated extensively about the importance of continuing with the Lovenox medication for the duration of the and up to 6 weeks for the treatment of the DVT to prevent any complications for herself or for the fetus. Hospital Course Patient is a pleasant 26-year-old female came in with comments of left lower extremity swelling found to have DVT in the left lower extremity. Patient is 8 weeks . She is comparing of severe pain in the leg as well as pain in the back. All these pains was started about 3 days ago. She and had history of sciatica during her last . Patient is also bit hyponatremic and did have leukocytosis with white blood cell count of 13,700. Leukocytosis is trending down at 11,000 today. Patient had a urinalysis with reflex culture. Culture was negative. Patient denies any urinary symptoms. Patient is reporting leg pain with difficulty ambulating related to that left lower extremity DVT which is extensive in nature. Patient has a family history of DVT. Patient will follow with hematology services patient is discharged on Lovenox 70 mg twice a day for the remainder of her and 6 weeks . Patient will follow with Dr. Carvalho as well as a primary care provider. 06/15/2021 Patient is evaluated at the bedside today, patient is tearful during discussion regarding discharge planning and Lovenox injections. Patient is able to ambulate and has bathroom privileges. Patient is a . Patient had a ultrasound completed this admission which showed a single intrauterine gestation estimated at 9 weeks 3 days gestation. She experienced nausea and vomiting with her first 7 years prior. Patient at the time of my examination is complaining of quite a bit of nausea with some vomiting. She is requesting IV Zofran. Patient's leukocytosis is improving with a white blood cell count today of 11. In addition patient's urine culture is negative. Patient will like to be discharged home today to follow up with her providers. Patient is agreeable to the Lovenox injections and is understanding of the importance. Patient is encouraged to increase her activity level and is able to ambulate without restriction. Refer to medication reconciliation for a list of current medications on discharge. Patient Condition at Discharge: Stable Plan - Discharge Summary Discharge Rx Participant: Yes New Discharge Prescriptions: New Enoxaparin [Lovenox] 70 mg SQ Q12HR #60 syringe HYDROcodone/APAP 5-325MG [[place] 5-325] 1 each PO Q6HR PRN #12 tab PRN Reason: Mild Pain Continue Acetaminophen [Tylenol Extra Strength] 1,000 mg PO Q6H PRN PRN Reason: Fever And/ Or Pain Discharge Medication List Acetaminophen [Tylenol Extra Strength] 1,000 mg PO Q6H PRN 06/13/21 [History] Enoxaparin [Lovenox] 70 mg SQ Q12HR #60 syringe 06/15/21 [Rx] HYDROcodone/APAP 5-325MG [[place] 5-325] 1 each PO Q6HR PRN #12 tab 06/15/21 [Rx] Follow up Appointment(s)/Referral(s): Tam Leslie MD [STAFF PHYSICIAN] - 1 Week (follow up for DVT, family history of DVT) Radha Carvalho DO [Doctor of Osteopathic Medicine] - 1 Week (follow up for ) None,Stated [Primary Care Provider] - 1-2 days Nina De La Rosa MD [REFERRING] - 1 Week (Follow-up with primary care) Patient Instructions/Handouts: Enoxaparin (By injection) Activity/Diet/Wound Care/Special Instructions: Patient is to follow-up with a primary care physician. She also needs a follow- up with Dr. Carvalho for obstetrical services. Patient is to take her Lovenox injections twice a day. She will need to do that for the remainder of her , and 6 weeks . Lovenox can be held before planned procedure like section and need to be started 6-12 hours after the procedure depending on the type of procedure. Patient will follow-up with hematology services as well for a family history of DVT. Continue to increase activity level as tolerated, patient is not on any activity restriction
== END 2021-06-15 17:23 | disposition home or self-care (01) | DRG 832 ==
LOC: EC 19:13 → 4SSUR 23:10 → OBSVTOIN 06-14 22:01
PROVIDERS: ADMIT Hospitalist; ATTEND Hospitalist
DX: O22.31 Deep phlebothrombosis in pregnancy, first trimester (principal); I82.412 Acute embolism and thrombosis of left femoral vein; I82.432 Acute embolism and thrombosis of left popliteal vein; E87.1 Hypo-osmolality and hyponatremia; O99.12 Other diseases of the blood and blood-forming organs and certain disorders involving the immune mechanism complicating childbirth; E86.1 Hypovolemia; O99.284 Endocrine, nutritional and metabolic diseases complicating childbirth; O99.511 Diseases of the respiratory system complicating pregnancy, first trimester; J45.909 Unspecified asthma, uncomplicated; D72.829 Elevated white blood cell count, unspecified; G89.29 Other chronic pain; Z3A.01 Less than 8 weeks gestation of pregnancy; M54.40 Lumbago with sciatica, unspecified side; Z90.89 Acquired absence of other organs; Z87.2 Personal history of diseases of the skin and subcutaneous tissue; Z98.890 Other specified postprocedural states; Z83.2 Family history of diseases of the blood and blood-forming organs and certain disorders involving the immune mechanism
CPT/HCPCS: 36415; 76801; 80048; 80053; 81001; 84702; 85025; 85610; 85730; 87086; 99285

== ENCOUNTER → 2021-08-08 | Outpatient (CLI) | payer BC, OTHER ==
--- NOTE | 2021-08-08 18:07 | US ---
EXAMINATION TYPE: US venous doppler duplex LE LT DATE OF EXAM: 08/08/2021 2:02 PM COMPARISON: Ultrasound 06-13-21 CLINICAL HISTORY: 26-year-old female I82.5Z9 Chronic embolism and thrombosis of. SIDE PERFORMED: Left TECHNIQUE: The lower extremity deep venous system is examined utilizing real time linear array sonog devonte with graded compression, doppler sonography and color-flow sonography. FINDINGS: VESSELS IMAGED: Common Femoral Vein Deep Femoral Vein Greater Saphenous Vein * Femoral Vein Popliteal Vein Small Saphenous Vein * Proximal Calf Veins (* superficial vessels) Left Leg: Improvement in overall appearance of DVT. Flow not seen in GSV at junction of CFV/GSV, upp er femoral vein shows partial flow, mid and lower femoral vein show flow in an anterior branch but no t in femoral vein. IMPRESSION: Residual left lower extremity DVT with some interval improvement. There is clearing of clot in the up per calf and popliteal veins. Clearing of clot within the anterior branch of the mid and lower femora l vein and partial clearance from the upper femoral vein. Thrombus remains within the greater sapheno us vein at its junction with the common femoral vein and also within the mid and lower femoral vein.
== END | disposition home or self-care (01) ==
LOC: RADUSWWP 13:38
PROVIDERS: ATTEND Internal Medicine Hematology & Oncology
DX: I82.812 Embolism and thrombosis of superficial veins of left lower extremity (principal); I82.402 Acute embolism and thrombosis of unspecified deep veins of left lower extremity

== ENCOUNTER 2022-01-10 06:00 | Inpatient (IN) | payer BC, OTHER ==
[2022-01-10] MEDS ORDERED: TERBUTALINE 1 MG/ML VIAL SQ PRN (06:21)
[2022-01-10] MEDS ORDERED: CARBOPROST TROMETHAMINE 250 MCG/ML 1 ML AMP IM PRN (06:21)
[2022-01-10] MEDS ORDERED: OXYTOCIN 10 UNIT/ML 1 ML VIAL IM PRN (06:21)
[2022-01-10] MEDS ORDERED: METHYLERGONOVINE 0.2 MG/ML 1 ML AMP IM PRN (06:21)
[2022-01-10] MEDS ORDERED: LIDOCAINE 1% (PF) 10 MG/ML (30 ML SDV) SQ PRN (06:21)
[2022-01-10] MEDS ORDERED: AMPICILLIN 2,000 MG in SODIUM CHLORIDE 0.9% 100 ML IVPB ONE (06:30)
[2022-01-10] MEDS ORDERED: OXYTOCIN 30 UNITS/500 ML NS 30 UNIT in SALINE 1 500ML.BAG IV SCH (06:30)
[2022-01-10] MEDS: LACTATED RINGERS 1,000 ML IV SCH ×3 (06:39→16:02)
[2022-01-10 06:53] LABS: Basophils # (A) 0.1 k/uL (0-0.2); Basophils % (A) 1 %; Eosinophils # (A) 0.1 k/uL (0-0.7); Eosinophils % (A) 1 %; HCT 33.5 % (34.0-46.0); HGB 11.5 gm/dL (11.4-16.0); Lymphocytes # (A) 2.2 k/uL (1.0-4.8); Lymphocytes % (A) 21 %; MCH 30.3 pg (25.0-35.0); MCHC 34.4 g/dL (31.0-37.0); MCV 88.2 fL (80.0-100.0); Mean Platelet Volume 8.1; Monocytes # (A) 0.5 k/uL (0-1.0); Monocytes % (A) 5 %; Neutrophils # (A) 7.1 k/uL (1.3-7.7); Neutrophils % (A) 70 %; Platelet Count 222 k/uL (150-450); RBC 3.81 m/uL (3.80-5.40); RDW 13.6 % (11.5-15.5)
--- NOTE | 2022-01-10 07:38 | P.HPOB ---
History of Present Illness H&P Date: 01/10/22 Chief Complaint: Induction of labor 26 year old presents at 39 weeks 3 days for induction of labor. Pt has history of DVT and was on lovenox for the whole . She did not take the lovenox yesterday or today. Her cervix is 2/60/-2 and she is darwin irregularly. heart tones 130 with moderate variability and reactive. Review of Systems All systems: negative Constitutional: Denies chills, Denies fever Eyes: denies blurred vision, denies pain Ears, nose, mouth and throat: Denies headache, Denies sore throat Cardiovascular: Denies chest pain, Denies shortness of breath Respiratory: Denies cough Gastrointestinal: Denies abdominal pain, Denies diarrhea, Denies nausea, Denies vomiting Genitourinary: Denies dysuria, Denies hematuria Musculoskeletal: Denies myalgias Integumentary: Denies pruritus, Denies rash Neurological: Denies numbness, Denies weakness Psychiatric: Denies anxiety, Denies depression Endocrine: Denies fatigue, Denies weight change Past Medical History Past Medical History: Asthma, Deep Vein Thrombosis (DVT) History of Any Multi-Drug Resistant Organisms: None Reported Past Surgical History: Adenoidectomy, Tonsillectomy Additional Past Surgical History / Comment(s): breast cyst removed Past Anesthesia/Blood Transfusion Reactions: No Reported Reaction Past Psychological History: No Psychological Hx Reported Smoking Status: Never smoker Past Alcohol Use History: None Reported Past Drug Use History: None Reported Medications and Allergies Home Medications Medication Instructions Recorded Confirmed Type Enoxaparin [Lovenox] 100 mg SQ DAILY 01/10/22 01/10/22 History Ondansetron [Zofran] 4 mg PO DAILY PRN 01/10/22 01/10/22 History Pnv No.95/Ferrous Fum/Folic AC 1 each PO DAILY 01/10/22 01/10/22 History [ Multivitamin Tablet] Allergies Allergy/AdvReac Type Severity Reaction Status Date / Time No Known Allergies Allergy Verified 01/10/22 06:20 Exam Osteopathic Statement: *. No significant issues noted on an osteopathic structural exam other than those noted in the History and Physical/Consult. Vital Signs Temp Pulse Resp BP Pulse Ox 01/10/22 06:28 97.8 F 91 18 113/84 97 Intake and Output 01/09/22 01/10/22 01/10/22 22:59 06:59 14:59 Other: Weight 76.657 kg Heart: Regular rate and rhythm Lungs: Clear to auscultation bilaterally Abdomen: Soft, nontender Extremities: Negative Homans sign Results Result Diagrams: 01/10/22 06:35 Abnormal Lab Results - Last 24 Hours (Table) 01/10/22 Range/Units 06:35 Hct 33.5 L (34.0-46.0) % Assessment and Plan (1) Encounter for induction of labor Current Visit: Yes Status: Acute Code(s): Z34.90 - ENCNTR FOR SUPRVSN OF NORMAL , UNSP, UNSP TRIMESTER SNOMED Code(s): 818162118 (2) History of DVT (deep vein thrombosis) Current Visit: Yes Status: Acute Code(s): Z86.718 - PERSONAL HISTORY OF OTHER VENOUS THROMBOSIS AND EMBOLISM SNOMED Code(s): 263270716 (3) 39 weeks gestation of Current Visit: Yes Status: Acute Code(s): Z3A.39 - 39 WEEKS GESTATION OF SNOMED Code(s): 86892702 Plan: 1. induction of labor with amniotomy and pitocin 2. anticipate normal vaginal delivery
[2022-01-10] MEDS ORDERED: BUTORPHANOL 1 MG/ML 1 ML VIAL IV PRN (09:46)
[2022-01-10] MEDS: AMPICILLIN 1,000 MG in SODIUM CHLORIDE 0.9% 50 ML IVPB SCH ×2 (10:30→16:02)
[2022-01-10] MEDS ORDERED: ROPIVACAINE 100 MG, fentaNYL (PF). 200 MCG in SODIUM CHLORIDE 0.9% 76 ML EPIDURAL ONE ×2 (12:13→12:14)
[2022-01-10] MEDS ORDERED: ZOLPIDEM 5 MG TAB PO PRN (16:05)
[2022-01-10] MEDS ORDERED: diphenhydrAMINE 25 MG CAP PO PRN (16:05)
[2022-01-10] MEDS ORDERED: HYDROCORTISONE 2.5% RECTAL CREAM 30 GM TUBE RECTAL PRN (16:05)
[2022-01-10] MEDS ORDERED: LANOLIN CREAM 5 GM TUBE TOPICAL PRN (16:05)
[2022-01-10] MEDS ORDERED: ACETAMINOPHEN TAB 325 MG TAB PO PRN (16:05)
[2022-01-10] MEDS ORDERED: diphenhydrAMINE 50 MG CAP PO PRN (16:05)
[2022-01-10] MEDS ORDERED: BENZOCAINE/MENTHOL SPRAY 1 GM/SPRAY AEROSOL TOPICAL PRN (16:05)
[2022-01-10 16:15] VITALS: RESP 16
[2022-01-10] MEDS: IBUPROFEN 600 MG TAB PO PRN (17:56)
[2022-01-10] MEDS: SENNOSIDES-DOCUSATE SODIUM 1 EACH TAB PO SCH (19:28)
--- NOTE | 2022-01-11 02:35 | P.PROBDLV ---
Vaginal Delivery Note - . Vaginal Delivery Note: 26 year old presents at 39 weeks 3 days for induction of labor. Pt has history of DVT and was on lovenox for the whole . She did not take the lovenox yesterday or today. Her cervix is 2/60/-2 and she is darwin irregularly. heart tones 130 with moderate variability and reactive. Pitocin was started and amniotomy performed at 721AM. Became uncomfortable rather quickly and did have one dose of Stadol before her epidural. She got an epidural when she was about 3 cm dilated, 70% effaced, and -2 station. Her cervix was completely dilated a little after 1400. She pushed, delivered a viable female over intact perineum under epidural anesthesia at 1430. Head delivered OA, anterior shoulder delivered gentle downward guidance of a posterior shoulder and rest of body. Nose and mouth bulb suctioned, cord clamped and cut, placed on mother's abdomen. Apgars 9, 9, weight 7 lbs. 3 oz. Placenta delivered spontaneously, intact with three-vessel cord at 1432. Vagina, cervix, and perineum were inspected. First-degree midline laceration was repaired with 3-0 Vicryl. Estimated blood loss 150 mL. Mother and baby in stable condition.
[2022-01-11] MEDS: IBUPROFEN 600 MG TAB PO PRN ×2 (04:31→12:13)
[2022-01-11 06:57] LABS: Basophils # (A) 0.1 k/uL (0-0.2); Basophils % (A) 0 %; Eosinophils # (A) 0.2 k/uL (0-0.7); Eosinophils % (A) 2 %; HCT 29.7 % (34.0-46.0); HGB 10.1 gm/dL (11.4-16.0); Lymphocytes # (A) 2.3 k/uL (1.0-4.8); Lymphocytes % (A) 22 %; MCH 30.4 pg (25.0-35.0); MCV 89.4 fL (80.0-100.0); Monocytes # (A) 0.6 k/uL (0-1.0); Monocytes % (A) 6 %; Neutrophils # (A) 7.3 k/uL (1.3-7.7); Neutrophils % (A) 69 %; Platelet Count 182 k/uL (150-450); RBC 3.33 m/uL (3.80-5.40); RDW 13.5 % (11.5-15.5); WBC 10.6 k/uL (3.8-10.6)
[2022-01-11 09:21] VITALS: PULSE 80
[2022-01-11] MEDS: SENNOSIDES-DOCUSATE SODIUM 1 EACH TAB PO SCH (09:31)
--- NOTE | 2022-01-11 10:37 | P.DS ---
Providers Date of admission: 01/10/22 06:13 Expected date of discharge: 01/11/22 Attending physician: Radha Carvalho Primary care physician: Stated None - Discharge Diagnosis(es) (1) Encounter for induction of labor Current Visit: Yes Status: Resolved (2) History of DVT (deep vein thrombosis) Current Visit: Yes Status: Chronic (3) 39 weeks gestation of Current Visit: Yes Status: Resolved (4) Status post normal vaginal delivery Current Visit: Yes Status: Acute Hospital Course: Patient presented for induction of labor. She underwent normal vaginal delivery. course was uncomplicated. Her bleeding is decreasing, her pain is well-controlled. She is tolerating regular diet and passing flatus. Voiding and ambulating without difficulty. Patient will be discharged home day #1 in stable condition to follow-up with me in 6 weeks. She will go back on her Lovenox 100 mg this afternoon which she does have at home. Advised that she should stop the Motrin that she was getting here since she is going back on her Lovenox. She will take Tylenol at home for any discomfort. Plan - Discharge Summary New Discharge Prescriptions: No Action Ondansetron [Zofran] 4 mg PO DAILY PRN PRN Reason: Nausea Pnv No.95/Ferrous Fum/Folic AC [ Multivitamin Tablet] 1 each PO DAILY Enoxaparin [Lovenox] 100 mg SQ DAILY Discharge Medication List Enoxaparin [Lovenox] 100 mg SQ DAILY 01/10/22 [History] Ondansetron [Zofran] 4 mg PO DAILY PRN 01/10/22 [History] Pnv No.95/Ferrous Fum/Folic AC [ Multivitamin Tablet] 1 each PO DAILY 01/10/22 [History] Follow up Appointment(s)/Referral(s): Radha Carvalho DO [Doctor of Osteopathic Medicine] - 02/21/22 10:45 am Discharge Disposition: HOME SELF-CARE
[2022-01-11 12:04] VITALS: BP 95/65; TEMP 98
== END 2022-01-11 16:25 | disposition home or self-care (01) | DRG 807 ==
LOC: 4FBP 06:13
PROVIDERS: ADMIT Obstetrics & Gynecology; ATTEND Obstetrics & Gynecology
PROC: 10907ZC Drainage of Amniotic Fluid, Therapeutic from Products of Conception, Via Natural or Artificial Opening (ICD-10-PCS; principal; 2022-01-10)
PROC: 3E0R3NZ Introduction of Analgesics, Hypnotics, Sedatives into Spinal Canal, Percutaneous Approach (ICD-10-PCS; principal; 2022-01-10)
PROC: 3E033VJ Introduction of Other Hormone into Peripheral Vein, Percutaneous Approach (ICD-10-PCS; principal; 2022-01-10)
PROC: 0HQ9XZZ Repair Perineum Skin, External Approach (ICD-10-PCS; principal; 2022-01-10)
PROC: 10E0XZZ Delivery of Products of Conception, External Approach (ICD-10-PCS; principal; 2022-01-10)
PROC: 00HU33Z Insertion of Infusion Device into Spinal Canal, Percutaneous Approach (ICD-10-PCS; principal; 2022-01-10)
DX: O99.52 Diseases of the respiratory system complicating childbirth (principal); Z37.0 Single live birth; J45.909 Unspecified asthma, uncomplicated; O70.0 First degree perineal laceration during delivery; Z86.718 Personal history of other venous thrombosis and embolism; Z79.01 Long term (current) use of anticoagulants; Z3A.39 39 weeks gestation of pregnancy
CPT/HCPCS: 85025; 86850; 86900; 86901

== ENCOUNTER → 2022-06-28 | Outpatient (CLI) | payer OTHER ==
--- NOTE | 2022-06-28 16:13 | US ---
EXAMINATION TYPE: US venous doppler duplex LE LT DATE OF EXAM: 06/28/2022 3:55 PM COMPARISON: Prior ultrasound August 08, 2021 CLINICAL HISTORY: R22.42 SWELLING LT LOWER LIMB. History of prior left lower extremity DVT. SIDE PERFORMED: Left TECHNIQUE: The lower extremity deep venous system is examined utilizing real time linear array sonog devonte with graded compression, doppler sonography and color-flow sonography. VESSELS IMAGED: Common Femoral Vein Deep Femoral Vein Greater Saphenous Vein * Femoral Vein Popliteal Vein Small Saphenous Vein * Proximal Calf Veins (* superficial vessels) Left Leg: Negative for DVT Grayscale, color doppler, spectral doppler imaging performed of the deep veins of the left lower extr emity. There is normal flow, compressibility, vascular waveforms. IMPRESSION: No recurrent acute DVT in the left lower extremity on current study.
== END | disposition home or self-care (01) ==
LOC: RADUSWWP 15:30
PROVIDERS: ATTEND Internal Medicine Hematology & Oncology
DX: R22.42 Localized swelling, mass and lump, left lower limb (principal)

== ENCOUNTER → 2022-10-09 | Outpatient (CLI) | payer OTHER ==
--- NOTE | 2022-10-09 15:59 | US ---
EXAMINATION TYPE: Transabdominal DATE OF EXAM: 10/09/2022 2:45 PM COMPARISON: NONE CLINICAL HISTORY: Z36.89 CONFIRM GESTATIONAL AGE AND VIABILITY. Confirm dates EXAM PERFORMED: Transabdominal (TA) EXAM MEASUREMENTS: GESTATIONAL AGE / DATING Physician Established: Not yet established Dates by LMP: (11 weeks/3 days) EDC: Dates by First Scan: No previous this is first scan Dates by Current Scan for: ( 9 weeks/0 days) EDC: 05/14/2023 MATERNAL ANATOMY Uterus: 12.7 x 5.7 x 7.0 cm Hypoechoic area seen 3.1 x 3.6 cm not well visualized in transverse. Right Ovary: Obscured by bowel gas. Left Ovary: 3.7 x 1.9 x 3.1 cm. Post CDS / Adnexa: wnl Presence of free fluid: wnl Presence of corpus luteal cyst: no Presence of subchorionic bleed: no GESTATION / SURVEY CRL: 2.28 cm (9 weeks/0 days) Yolk Sac (normal less than 6mm): 4mm Heart Rate: 165 bpm Rhythm: Normal IUP: Viable IUP Beta HcG (if available): Not available at this time IMPRESSION: 1. Single intrauterine gestation estimated at 9 weeks 0 days gestation based on crown-rump length. Ca rdiac activity measures 165 bpm.
== END | disposition home or self-care (01) ==
LOC: RADUSWWP 14:19
PROVIDERS: ATTEND Obstetrics & Gynecology
DX: Z36.89 Encounter for other specified antenatal screening (principal); Z3A.09 9 weeks gestation of pregnancy
CPT/HCPCS: 76801

== ENCOUNTER 2023-04-17 10:00 | Outpatient (CLI) | payer OTHER ==
[2023-04-17 10:24] VITALS: BP 100/61; PULSE 107; RESP 16; TEMP 97.7
--- NOTE | 2023-04-17 10:58 | US ---
EXAMINATION TYPE: US OB BPP wo non-stress DATE OF EXAM: 04/17/2023 COMPARISON: NONE CLINICAL INDICATION: Female, 28 years old with history of abnormal result last ultrasound; 04/18 on [facility] rasound yesterday at outside facility TECHNIQUE: Transabdominal (TA). Scoring by the mining professionals during real-time assessment. FINDINGS: BPP PARAMETERS: PRESENTATION: Vertex LIE: Longitudinal?? HEART RATE: 140 bpm RHYTHM: Normal HIEN: 12.0cm DIAPHRAGM IMAGED: yes BPP SCORIN. Breathin (1 episode of breathing of 30 second duration in 30 minutes of scanning time) 2. Movement: 2 (at least 3 discrete body movements in 30 minutes) 3. Tone: 2 (1 episode of active flexion/extension of limb) 4. HIEN: 2 (HIEN index > 5cm) IMPRESSION: Normal NST. TOTAL SCORE: 8 / 8
== END 2023-04-17 11:15 | disposition home or self-care (01) ==
LOC: FBPOP 10:00
PROVIDERS: ATTEND Obstetrics & Gynecology
DX: O22.33 Deep phlebothrombosis in pregnancy, third trimester (principal); I82.409 Acute embolism and thrombosis of unspecified deep veins of unspecified lower extremity; Z3A.39 39 weeks gestation of pregnancy
CPT/HCPCS: 59025; 76819

== ENCOUNTER 2023-05-02 06:15 | Inpatient (IN) | payer OTHER ==
[2023-05-02] MEDS ORDERED: TERBUTALINE 1 MG/ML VIAL SQ PRN (06:30)
[2023-05-02] MEDS ORDERED: TRANEXAMIC 1,000 MG/100ML-NACL 1,000 MG in EMPTY BAG 1 BAG IV PRN (06:30)
[2023-05-02] MEDS ORDERED: OXYTOCIN 30 UNITS/500 ML NS 30 UNIT in SALINE 1 500ML.BAG IV SCH (06:30)
[2023-05-02] MEDS ORDERED: METHYLERGONOVINE 0.2 MG/ML 1 ML AMP IM PRN (06:30)
[2023-05-02] MEDS ORDERED: LIDOCAINE 0.5% (PF) 5 MG/ML (50 ML SDV) SQ PRN (06:30)
[2023-05-02] MEDS ORDERED: AMPICILLIN 2,000 MG in SODIUM CHLORIDE 0.9% 100 ML IVPB STA (06:30)
[2023-05-02] MEDS ORDERED: miSOPROStoL 200 MCG TAB PO PRN (06:30)
[2023-05-02] MEDS ORDERED: OXYTOCIN 10 UNIT/ML 1 ML VIAL IM PRN (06:30)
[2023-05-02] MEDS ORDERED: CARBOPROST TROMETHAMINE 250 MCG/ML 1 ML AMP IM PRN (06:30)
[2023-05-02] MEDS: LACTATED RINGERS 1,000 ML IV SCH ×3 (06:57→14:53)
[2023-05-02 07:22] LABS: Basophils % (A) 0 %; Eosinophils % (A) 1 %; HCT 31.5 % (34.0-46.0); HGB 10.6 gm/dL (11.4-16.0); Lymphocytes % (A) 28 %; MCH 28.2 pg (25.0-35.0); MCHC 33.7 g/dL (31.0-37.0); MCV 83.9 fL (80.0-100.0); Mean Platelet Volume 8.4; Monocytes # (A) 0.5 k/uL (0-1.0); Monocytes % (A) 7 %; Neutrophils # (A) 4.4 k/uL (1.3-7.7); Neutrophils % (A) 62 %; Platelet Count 226 k/uL (150-450); RBC 3.75 m/uL (3.80-5.40); RDW 13.5 % (11.5-15.5); WBC 7.2 k/uL (3.8-10.6)
[2023-05-02 07:36] LABS: INR 0.9 (<1.2); Partial Thromboplastin Time 22.5 sec (22.0-30.0); Prothrombin Time 9.4 sec (9.0-12.0)
[2023-05-02] MEDS ORDERED: HYDROmorphone 1 MG/ML 1 ML SYRINGE IVP PRN (09:39)
--- NOTE | 2023-05-02 11:00 | P.HPOB ---
History of Present Illness H&P Date: 05/02/23 Chief Complaint: induction of labor 28 year old presents at 39 weeks for induction of labor. Her cervix is 1-2/60/-3. She is darwin irregularly. heart tones 135 with moderate variability and reactive. Review of Systems All systems: negative Constitutional: Denies chills, Denies fever Eyes: denies blurred vision, denies pain Ears, nose, mouth and throat: Denies headache, Denies sore throat Cardiovascular: Denies chest pain, Denies shortness of breath Respiratory: Denies cough Gastrointestinal: Denies abdominal pain, Denies diarrhea, Denies nausea, Denies vomiting Genitourinary: Denies dysuria, Denies hematuria Musculoskeletal: Denies myalgias Integumentary: Denies pruritus, Denies rash Neurological: Denies numbness, Denies weakness Psychiatric: Denies anxiety, Denies depression Endocrine: Denies fatigue, Denies weight change Past Medical History Past Medical History: Asthma, Deep Vein Thrombosis (DVT) History of Any Multi-Drug Resistant Organisms: None Reported Past Surgical History: Adenoidectomy, Tonsillectomy Additional Past Surgical History / Comment(s): wrist cyst removed Past Anesthesia/Blood Transfusion Reactions: No Reported Reaction Past Psychological History: No Psychological Hx Reported Smoking Status: Never smoker Past Alcohol Use History: None Reported Past Drug Use History: None Reported Medications and Allergies Home Medications Medication Instructions Recorded Confirmed Type Enoxaparin [Lovenox] 100 mg SQ DAILY 01/10/22 04/17/23 History Ondansetron [Zofran] 4 mg PO DAILY PRN 01/10/22 04/17/23 History Pnv No.95/Ferrous Fum/Folic AC 1 each PO DAILY 01/10/22 04/17/23 History [ Multivitamin Tablet] Allergies Allergy/AdvReac Type Severity Reaction Status Date / Time No Known Allergies Allergy Verified 04/17/23 10:12 Exam Osteopathic Statement: *. No significant issues noted on an osteopathic structural exam other than those noted in the History and Physical/Consult. Vital Signs Temp Pulse Resp BP Pulse Ox 05/02/23 06:35 98.5 F 64 18 115/73 100 Intake and Output 05/01/23 05/02/23 05/02/23 22:59 06:59 14:59 Other: Weight 78.925 kg HEart: RRR Lungs: CTAB Abdomen: soft, nontender Extremeties: neg rodo's Results Result Diagrams: 05/02/23 06:50 Abnormal Lab Results - Last 24 Hours (Table) 05/02/23 Range/Units 06:50 RBC 3.75 L (3.80-5.40) m/uL Hgb 10.6 L (11.4-16.0) gm/dL Hct 31.5 L (34.0-46.0) % Assessment and Plan (1) History of DVT (deep vein thrombosis) Current Visit: No Status: Chronic Code(s): Z86.718 - PERSONAL HISTORY OF OTHER VENOUS THROMBOSIS AND EMBOLISM SNOMED Code(s): 532954699 (2) 39 weeks gestation of Current Visit: No Status: Resolved Code(s): Z3A.39 - 39 WEEKS GESTATION OF SNOMED Code(s): 82769096 (3) Encounter for induction of labor Current Visit: No Status: Resolved Code(s): Z34.90 - ENCNTR FOR SUPRVSN OF NORMAL , UNSP, UNSP TRIMESTER SNOMED Code(s): 972096875 Plan: 1. induction of labor with amniotomy and pitocin 2. anticipate normal vaginal delivery
[2023-05-02] MEDS: AMPICILLIN 1,000 MG in SODIUM CHLORIDE 0.9% 50 ML IVPB SCH ×2 (12:24→14:55)
[2023-05-02] MEDS ORDERED: LANOLIN CREAM 5 GM TUBE TOPICAL PRN (15:26)
[2023-05-02] MEDS ORDERED: SIMETHICONE 80 MG CHEWABLE PO PRN (15:26)
[2023-05-02] MEDS ORDERED: diphenhydrAMINE 50 MG/ML 1 ML VIAL IVP PRN ×2 (15:26)
[2023-05-02] MEDS ORDERED: ACETAMINOPHEN TAB 325 MG TAB PO PRN (15:26)
[2023-05-02] MEDS ORDERED: HYDROCORTISONE 2.5% RECTAL CREAM 30 GM TUBE RECTAL PRN (15:26)
[2023-05-02] MEDS ORDERED: diphenhydrAMINE 50 MG CAP PO PRN (15:26)
[2023-05-02] MEDS ORDERED: diphenhydrAMINE 25 MG CAP PO PRN (15:26)
[2023-05-02] MEDS ORDERED: ZOLPIDEM 5 MG TAB PO PRN (15:26)
[2023-05-02] MEDS ORDERED: BENZOCAINE/MENTHOL SPRAY 1 GM/SPRAY AEROSOL TOPICAL PRN (15:26)
[2023-05-02] MEDS: SENNOSIDES-DOCUSATE SODIUM 1 EACH TAB PO SCH (19:44)
[2023-05-02] MEDS: IBUPROFEN 600 MG TAB PO PRN (19:44)
[2023-05-02] MEDS: ENOXAPARIN 40 MG/0.4 ML SYRINGE SQ SCH (19:46)
[2023-05-02] MEDS ORDERED: Rhogam IMMUNE GLOBULIN 1,500 UNIT/1 ML IM ONE (20:45)
[2023-05-03 01:01] VITALS: TEMP 98.1
[2023-05-03 07:15] LABS: Basophils % (A) 0 %; Eosinophils # (A) 0.1 k/uL (0-0.7); Eosinophils % (A) 1 %; HGB 9.9 gm/dL (11.4-16.0); Lymphocytes # (A) 2.5 k/uL (1.0-4.8); Lymphocytes % (A) 30 %; MCH 28.8 pg (25.0-35.0); MCHC 34.2 g/dL (31.0-37.0); MCV 84.1 fL (80.0-100.0); Monocytes # (A) 0.6 k/uL (0-1.0); Monocytes % (A) 7 %; Neutrophils # (A) 5.1 k/uL (1.3-7.7); Neutrophils % (A) 60 %; Platelet Count 194 k/uL (150-450); RBC 3.45 m/uL (3.80-5.40); RDW 13.5 % (11.5-15.5); WBC 8.5 k/uL (3.8-10.6)
--- NOTE | 2023-05-03 08:19 | P.PROBDLV ---
Vaginal Delivery Note - . Vaginal Delivery Note: 28 year old presents at 39 weeks for induction of labor. Her cervix is 1-2/60/-3. She is darwin irregularly. heart tones 135 with moderate variability and reactive. Pitocin was started and amniotomy performed at 7:07 AM, clear fluid noted. When she was uncomfortable she did get some Dilaudid and then she did get an epidural and was comfortable. Her cervix was completely dilated at 1428. She pushed, delivered a viable male infant over intact ever neum under epidural anesthesia. Head delivered OA, anterior shoulder delivered gentle downward guidance of a posterior shoulder and rest of body. Nose and mouth bulb suctioned, cord clamped and cut, infant placed mother's abdomen. Apgars 9, 9, weight 6 lbs. 12 oz. Placenta delivered spontaneously, intact with three-vessel cord at 1441. Vagina, cervix, perineum inspected. First-degree midline perineal laceration repaired with 3-0 Vicryl. Estimated blood loss 246 mL. Mother and baby in stable condition.
--- NOTE | 2023-05-03 08:20 | P.DS ---
Providers Date of admission: 05/02/23 06:17 Expected date of discharge: 05/03/23 Attending physician: Radha Carvalho Primary care physician: Stated None - Discharge Diagnosis(es) (1) History of DVT (deep vein thrombosis) Current Visit: No Status: Chronic (2) 39 weeks gestation of Current Visit: No Status: Resolved (3) Encounter for induction of labor Current Visit: No Status: Resolved (4) Status post normal vaginal delivery Current Visit: No Status: Acute Hospital Course: Patient presented for induction of labor. She underwent a normal vaginal delivery. course was eventful. Denies nausea, vomiting, chest pain, shortness of breath or calf pain. Patient will be discharged home day #1 in stable condition to follow-up with me in 6 weeks. Plan - Discharge Summary New Discharge Prescriptions: No Action Ondansetron [Zofran] 4 mg PO DAILY PRN PRN Reason: Nausea Pnv No.95/Ferrous Fum/Folic AC [ Multivitamin Tablet] 1 each PO DAILY Enoxaparin [Lovenox] 100 mg SQ DAILY Discharge Medication List Enoxaparin [Lovenox] 100 mg SQ DAILY 01/10/22 [History] Ondansetron [Zofran] 4 mg PO DAILY PRN 01/10/22 [History] Pnv No.95/Ferrous Fum/Folic AC [ Multivitamin Tablet] 1 each PO DAILY 01/10/22 [History] Follow up Appointment(s)/Referral(s): Radha Carvalho DO [Doctor of Osteopathic Medicine] - 06/13/23 3:45 pm Discharge Disposition: HOME SELF-CARE
[2023-05-03] MEDS: IBUPROFEN 600 MG TAB PO PRN ×2 (08:21→15:11)
[2023-05-03] MEDS: SENNOSIDES-DOCUSATE SODIUM 1 EACH TAB PO SCH (08:21)
[2023-05-03 09:48] VITALS: BP 104/69; PULSE 70; RESP 16
[2023-05-03] MEDS: ENOXAPARIN 40 MG/0.4 ML SYRINGE SQ SCH (09:49)
== END 2023-05-03 16:30 | disposition home or self-care (01) | DRG 560 ==
LOC: 4FBP 06:17
PROVIDERS: ADMIT Obstetrics & Gynecology; ATTEND Obstetrics & Gynecology
PROC: 10E0XZZ Delivery of Products of Conception, External Approach (ICD-10-PCS; principal; 2023-05-02)
PROC: 0HQ9XZZ Repair Perineum Skin, External Approach (ICD-10-PCS; 2023-05-02)
PROC: 3E033VJ Introduction of Other Hormone into Peripheral Vein, Percutaneous Approach (ICD-10-PCS; 2023-05-02)
PROC: 10907ZC Drainage of Amniotic Fluid, Therapeutic from Products of Conception, Via Natural or Artificial Opening (ICD-10-PCS; 2023-05-02)
PROC: 00HU33Z Insertion of Infusion Device into Spinal Canal, Percutaneous Approach (ICD-10-PCS; 2023-05-02)
PROC: 3E0R3BZ Introduction of Anesthetic Agent into Spinal Canal, Percutaneous Approach (ICD-10-PCS; 2023-05-02)
DX: O99.52 Diseases of the respiratory system complicating childbirth (principal); O70.0 First degree perineal laceration during delivery; J45.909 Unspecified asthma, uncomplicated; Z37.0 Single live birth; Z3A.39 39 weeks gestation of pregnancy; Z86.718 Personal history of other venous thrombosis and embolism
CPT/HCPCS: 85025; 85461; 85610; 85730; 86850; 86870; 86880; 86900; 86901

== ENCOUNTER → 2023-06-18 | Outpatient (CLI) | payer OTHER | END | disposition home or self-care (01) | LOC: LABWHC1 16:17 | PROVIDERS: ATTEND Obstetrics & Gynecology | DX: N91.2 Amenorrhea, unspecified (principal) | CPT/HCPCS: 36415; 84702 ==